=== PATIENT | female | born 1960 | race Caucasian/White ===

== ENCOUNTER → 2023-11-03 | Outpatient (CLI) | payer BC ==
--- NOTE | 2023-11-03 14:19 | XR ---
EXAMINATION TYPE: XR thoracic spine complete DATE OF EXAM: 11/03/2023 CLINICAL HISTORY: pain TECHNIQUE: Frontal, lateral, and swimmer's view of thoracic spine are obtained. COMPARISON: None. FINDINGS: Thoracic spine show satisfactory alignment without evidence of acute fracture or dislocatio n. Vertebral body heights are preserved. Mild degenerative disc space narrowing with scattered ventr al spondylosis. Visualized ribs are unremarkable. IMPRESSION: No acute fracture or dislocation is seen in the thoracic spine. ICD 10 NO FRACTURE, INIT IAL EVALUATION
== END | disposition home or self-care (01) ==
LOC: RADXRYALE 13:18
PROVIDERS: ATTEND Internal Medicine
DX: M54.6 Pain in thoracic spine (principal)
CPT/HCPCS: 72072

== ENCOUNTER → 2024-08-31 | Outpatient (CLI) | payer BC ==
--- NOTE | 2024-08-31 15:45 | XR ---
EXAMINATION TYPE: XR shoulder complete LT DATE OF EXAM: 08/31/2024 2:09 PM COMPARISON: None. CLINICAL INDICATION: Female, 64 years old with history of [id number] SCIATICA,LT HIP PAIN,LT SHLD P, TECHNIQUE: XR shoulder complete LT view(s) obtained. FINDINGS: The humeral head articulates with the glenoid. The acromio-clavicular junction is normal. No acute fractures or dislocations are evident. A follow up study can be performed 7-10 days from acute trauma for continued pain. MRI can be perfor med if soft tissue evaluation would be of benefit. IMPRESSION: 1. No acute osseous shoulder abnormality. [facility], , 08/31/2024 3:43 PM
--- NOTE | 2024-08-31 16:49 | XR ---
EXAMINATION TYPE: XR lumbosacral spine min 4V DATE OF EXAM: 08/31/2024 2:09 PM COMPARISON: None. CLINICAL INDICATION: Female, 64 years old with history of [id number] SCIATICA,LT HIP PAIN,LT SHLD P, pain TECHNIQUE: 5 view(s) obtained. FINDINGS: There is a grade 1 approaching grade 2 spondylolisthesis of L5 anterior to S1. There is loss of the L 5-S1 disc height. Spondylolysis of L5 is present on the lateral view but not as well-visualized on th e oblique views Posterior disc space narrowing is present at L4-5 and to a lesser degree L3-4. Verteb ral body heights are preserved. There are 5 lumbar-type vertebral bodies. Pedicles are intacta IMPRESSION: 1. Spondylolysis of L5. There is a grade 1 approaching grade 2 spondylolisthesis of L5 anteriorly on S1. 2. Degenerative disc changes L5-S1 and posteriorly at L4-5 and L3-4 [facility], , 08/31/2024 4:47 PM
--- NOTE | 2024-08-31 16:50 | XR ---
EXAMINATION TYPE: XR Hip Complete LT DATE OF EXAM: 08/31/2024 2:09 PM COMPARISON: None. CLINICAL INDICATION: Female, 64 years old with history of [id number] SCIATICA,LT HIP PAIN,LT SHLD P, pain TECHNIQUE: 2 view(s) obtained. FINDINGS: Femoral head articulates with the acetabulum. Joint space is narrowed. No acute fracture or dislocati on evident. Sacroiliac joints and symphysis pubis are patent IMPRESSION: 1. No acute osseous abnormality left hip. 2. Mild to moderate degenerative changes tip [facility], Workstation: 3, 08/31/2024 4:47 PM
== END | disposition home or self-care (01) ==
LOC: RADXRYALE 13:37
PROVIDERS: ATTEND Internal Medicine
DX: M51.17 Intervertebral disc disorders with radiculopathy, lumbosacral region (principal); M47.27 Other spondylosis with radiculopathy, lumbosacral region; M43.17 Spondylolisthesis, lumbosacral region; M16.12 Unilateral primary osteoarthritis, left hip; M25.512 Pain in left shoulder
CPT/HCPCS: 72110; 73502